=== PATIENT | male | born 2000 | race Caucasian/White ===

== ENCOUNTER → 2022-04-13 10:00 | Outpatient (CLI) | payer BC, SELFPAY ==
--- NOTE | 2022-04-13 10:07 | US_ITS ---
PROCEDURE INFORMATION: Exam: US Left Breast, Complete Exam date and time: 04/13/2022 10:15 AM Age: 21 years old Clinical indication: Palpable abnormality in the left breast TECHNIQUE: Imaging protocol: Complete ultrasound of all four quadrants of the Left breast and the retroareolar regions, including ultrasound of the axilla when performed. COMPARISON: No relevant prior studies available. FINDINGS: Breast: Sonographic images of the left retroareolar region where the patient reports a palpable abnormality demonstrates nonspecific hypoechoic tissue most consistent with mild benign retroareolar gynecomastia. No solid or cystic masses are seen in the retroareolar region or the remainder of the left breast. No architectural distortion or acoustical shadowing. No axillary adenopathy. IMPRESSION: Palpable abnormality in the left retroareolar region corresponds sonographically to benign-appearing mild gynecomastia. Correlation with current medication use is recommended to assess the potential etiology for the gynecomastia. Further evaluation of a palpable abnormality should be based on clinical grounds regardless of radiographic findings or lack thereof. ASSESSMENT: BI-RADS Category 2: Benign
== END ==
PROVIDERS: Visit Provider Nurse Practitioner Family
DX: N63.42 Unspecified lump in left breast, subareolar (principal)
CPT/HCPCS: 76641